=== PATIENT | male | born 1955 | race Caucasian/White ===

== ENCOUNTER → 2018-08-06 | Outpatient (CLI) | payer BC ==
[2018-08-06 11:16] LABS: Basophils % (A) 0 %; Eosinophils # (A) 0.2 k/uL (0-0.7); Eosinophils % (A) 3 %; HCT 48.9 % (39.0-53.0); HGB 16.3 gm/dL (13.0-17.5); Lymphocytes # (A) 1.2 k/uL (1.0-4.8); Lymphocytes % (A) 21 %; MCH 30.8 pg (25.0-35.0); MCHC 33.3 g/dL (31.0-37.0); MCV 92.3 fL (80.0-100.0); Monocytes # (A) 0.4 k/uL (0-1.0); Monocytes % (A) 6 %; Neutrophils % (A) 68 %; Platelet Count 149 k/uL (150-450); RBC 5.29 m/uL (4.30-5.90); RDW 13.5 % (11.5-15.5)
[2018-08-06 11:17] LABS: Appearance,Urine Clear (Clear); Bilirubin,Urine Negative (Negative); Blood,Urine Negative (Negative); Color,Urine Light Yellow; Glucose,Urine (UA) Negative (Negative); Ketones,Urine Negative (Negative); Leukocyte Esterase,Urine Negative (Negative); Nitrite,Urine Negative (Negative); PH, Urine 5.5 (5.0-8.0); Protein,Urine Negative (Negative); Specific Gravity,Urine 1.008 (1.001-1.035); Urobilinogen,Urine <2.0 mg/dL (<2.0)
[2018-08-06 11:31] LABS: INR 0.9 (<1.2); Partial Thromboplastin Time 23.9 sec (22.0-30.0); Prothrombin Time 9.6 sec (9.0-12.0)
[2018-08-06 11:35] LABS: Anion Gap 4 mmol/L; Blood Urea Nitrogen 16 mg/dL (9-20); Calcium 9.8 mg/dL (8.4-10.2); Carbon Dioxide 33 mmol/L (22-30); Chloride 103 mmol/L (98-107); Glucose 97 mg/dL (74-99); Potassium 5.8 mmol/L (3.5-5.1); Sodium 140 mmol/L (137-145)
--- NOTE | 2018-08-06 11:37 | XR ---
EXAMINATION TYPE: XR chest 2V DATE OF EXAM: 08/06/2018 COMPARISON: 03/18/2016 HISTORY: Preoperative examination TECHNIQUE: Frontal and lateral views of the chest are obtained. FINDINGS: There is no focal air space opacity, pleural effusion, or pneumothorax seen. The cardiac silhouette size is within normal limits. The osseous structures are intact. Mild multilevel degener ative changes seen of the thoracic spine. Cholecystectomy clips are noted. IMPRESSION: No acute cardiopulmonary process.
== END | disposition home or self-care (01) ==
LOC: LABPAT 10:03
PROVIDERS: ATTEND Orthopaedic Surgery Orthopaedic Surgery of the Spine
DX: Z01.818 Encounter for other preprocedural examination (principal); M50.21 Other cervical disc displacement, high cervical region; Z01.812 Encounter for preprocedural laboratory examination
CPT/HCPCS: 71046; 80048; 81003; 85025; 85610; 85730; 93005

== ENCOUNTER → 2018-08-08 | Outpatient (CLI) | payer BC ==
[2018-08-08 19:26] LABS: Anion Gap 4.2 mmol/L (4.00-12.00); Calcium 9.1 mg/dL (8.7-10.3); Carbon Dioxide 29.8 mmol/L (21.6-31.8); Potassium 4.5 mmol/L (3.5-5.5)
== END | disposition home or self-care (01) ==
LOC: LABWHC1 11:46
PROVIDERS: ATTEND Family Medicine
DX: E87.5 Hyperkalemia (principal)
CPT/HCPCS: 36415; 80048

== ENCOUNTER 2018-08-13 12:53 | Day surgery (SDC) | payer BC ==
[~2018-08-13 12:53] MED LIST: BACITRACIN 50,000 UNIT, POLYMYXIN B 500,000 UNIT in SODIUM CHLORIDE 0.9% IRRIGATIO 1,00... IRRIGATION ONE; HYDROmorphone 0.5 MG/0.5 ML SYRINGE IVP PRN; LACTATED RINGERS 1,000 ML IV SCH; LIDOCAINE 1% 20 ML VIAL (10MG/ML) FOR IV START INTRADERMA PRN; ONDANSETRON 4 MG/2 ML VIAL IVP ONE
[2018-08-13 13:07] VITALS: RESP 16
[2018-08-13] MEDS ORDERED: SCOPOLAMINE 1.5MG/72HR PATCH TRANSDERM ONE (13:15)
[2018-08-13] MEDS ORDERED: MIDAZOLAM 2 MG/2 ML VIAL ONE (13:38)
[2018-08-13] MEDS ORDERED: SUCCINYLCHOLINE CHLORIDE 100 MG/5 ML SYR IV ONE (13:38)
[2018-08-13] MEDS ORDERED: LIDOCAINE 1% INJ 10MG/ML (20 ML MDV) ONE (13:38)
[2018-08-13] MEDS ORDERED: fentaNYL (PF) 50 MCG/ML 2 ML AMP ONE (13:38)
[2018-08-13] MEDS ORDERED: PROPOFOL 10 MG/ML 20 ML VIAL IV ONE (13:38)
[2018-08-13] MEDS ORDERED: diphenhydrAMINE 50 MG/ML 1 ML VIAL ONE (13:38)
[2018-08-13] MEDS: ceFAZolin IN SWFI 2 GM/20 ML SYRINGE IVP ONE ×2 (13:41→14:23)
[2018-08-13] MEDS ORDERED: GELATIN SPONGE,ABSORB (LARGE) 1 EACH SPONGE MISCELLANE ONE (14:24)
[2018-08-13] MEDS ORDERED: BUPIVACAINE-EPI 0.5%-1:200,000 10 ML VIAL SQ ONE (14:24)
[2018-08-13] MEDS ORDERED: THROMBIN (BOVINE) 5,000 UNIT VIAL TOPICAL ONE (14:24)
--- NOTE | 2018-08-13 14:54 | XR ---
EXAMINATION TYPE: XR cervical spine 1V DATE OF EXAM: 08/13/2018 COMPARISON: NONE HISTORY: Neck pain. TECHNIQUE: Crosstable lateral view of cervical spine is obtained intraoperatively. FINDINGS: Exam is for surgical planning and upper diagnostic purposes. Metallic pointer for surgical planning is at anterior superior C7 level. IMPRESSION: As above.
[2018-08-13] MEDS ORDERED: BENZOCAINE/MENTHOL LOZENG 1 EACH LOZENGE MUCOUS MEM PRN (15:21)
[2018-08-13] MEDS ORDERED: HYDROmorphone 0.5 MG/0.5 ML SYRINGE IVP PRN (15:21)
[2018-08-13] MEDS ORDERED: HYDROcodone/APAP 5-325MG 1 EACH TAB PO PRN (15:21)
[2018-08-13] MEDS ORDERED: ONDANSETRON 4 MG/2 ML VIAL IVP PRN (15:21)
[2018-08-13] MEDS ORDERED: GABAPENTIN 300 MG CAP PO PRN (15:23)
[2018-08-13] MEDS ORDERED: ALPRAZolam 0.25 MG TAB PO PRN (15:23)
[2018-08-13] MEDS ORDERED: SODIUM CHLORIDE 0.9% 1,000 ML IV SCH (15:30)
[2018-08-13 15:31] VITALS: TEMP 97
--- NOTE | 2018-08-13 15:31 | P.OP ---
Date of Procedure: 08/13/18 Preoperative Diagnosis: Herniated nucleus pulposis C6 7, right upper extremity radiculopathy, right upper extremity weakness, degenerative disc disease Postoperative Diagnosis: Same Anesthesia: GETA Pathology: none sent Condition: stable Disposition: PACU Description of Procedure: BRIEF OPERATIVE NOTE Preoperative Diagnosis:Herniated nucleus pulposis C6 7, right upper extremity radiculopathy, right upper extremity weakness, degenerative disc disease Postoperative Diagnosis: Same Procedure: Anterior cervical decompression with discectomy and fusion C6 7 Placement of interbody graft C6 7 Application of anterior cervical plate C6 7 Surgeon: Dr. Mahoney Ribbon Winder: Je Jackson is present throughout the entire the case persistence during positioning, dissection, exposure, visualization, and all crucial elements of the case as well as closure. Anesthesia: General anesthesia per Dr. Gambino Estimated blood loss: Approximately 50 mL Complications: None apparent Components implanted: K2M [place] anterior cervical plate system with a 8 mm V Kos interbody allograft bone graft Disposition: To recovery room in good stable condition. OPERATIVE INDICATIONS The patient has had long-standing issues in their neck and upper extremities. He had acute worsening of his neck and upper extremity symptoms particular to the right and was having new weakness in his right upper extremity. He was found have significant degenerative changes throughout his cervical spine with a apparent new disc herniation on the right side at C6 7 which correlated well with his neck and upper extremity symptoms. The patient has been through conservative treatment. We discussed the possibility of dressing all the levels at his cervical spine versus the level that appeared to correlate most with his new neck and right upper extremity symptoms. We discussed various treatment options including surgery, and the patient wishes to proceed with surgery We discussed the risk, patient's alternatives and benefits of surgery including but not limited to, risk of bleeding risk of infection, risk of need for further surgery, risk of decreased, loss of motion, muscle function, malunion nonunion, hardware failure, nerve damage, paralysis, heart attack, and . OPERATIVE SUMMARY After discussing all the risks, patient alternatives and benefits at length, the patient elected to proceed with surgical intervention, signed informed consent, and presented for their procedure. The patient was seen and examined in the preoperative holding area and the surgical site was marked. The patient was given antibiotics and brought to the operating room. The patient was positioned on the operating room table in a supine position being careful to pad any bony prominences and pressure points. The patient was sedated and intubated by anesthesia in standard fashion. Once the airway and C- spine were stabilized the patient's arms were padded and tucked at her side, with her shoulders gently taped. The head was placed in a donut pad with the neck in good neutral alignment and position. We were careful to maintain the patient's cervical spine and good neutral alignment and position throughout. The patient was prepped and draped in a normal standard fashion. An appropriate timeout and keystone protocol performed. We were able to proceed with the surgery. The local wound area was infiltrated with local anesthetic. An incision was made transversely approximately 2-1/2 cm over the appropriate levels of C6 7. Dissection was taken down subcutaneously to the level of the platysma which was split in line with its fibers. Dissection was taken with a carotid approach, with the trachea and esophagus medial and the carotid sheath laterally. We dissected down to the anterior surface of the vertebral bodies of C6 7. Intraoperative x-ray was taken which showed a marker at the appropriate level at C6 7 disc space. With the appropriate level positively confirmed, we were able to proceed with discectomy at the appropriate levels of C6 7. All of the operative levels were exposed appropriately. The patient had all their tw itches back, and there was no evidence of recurrent laryngeal issue. The wound was copiously irrigated and suctioned dry as had been done periodically throughout the case. At the appropriate level of C6 7, I established an annulotomy with an 11 blade scalpel. A discectomy was performed with a combination of pituitary rongeurs, curettes, a high-speed bur, and Kerrison rongeurs. The posterior longitudinal ligament was taken down as were any posterior osteophytes. Note was made of a large disc extrusion and herniation to the right with correlate with the MRI and with his symptoms. I was able to remove the disc herniation and loose fragments. This gave good central and bilateral foraminal decompression. There is no evidence of any dural tear or leak. The endplates were prepared with a high-speed bur. With the endplates in good parallel position, I was able to size for the appropriate size interbody graft. The wound was irrigated and suctioned dry the graft was prepared and malleted into position. It had good alignment and position with the anterior surface flush with the anterior surface of the vertebral bodies. With the grafts intact, I was able to measure and contour and appropriate sized plate. The plate was positioned at the midline over the appropriate levels of C6 7. Screw holes were established with a hand drill and drill guide. Screws were placed in good alignment and position with excellent bony purchase. They were seated under the locking device. The construct was checked and found to be stable. Intraoperative x-ray was taken which showed good alignment and position of the implants at the appropriate levels. There was no evidence of any dural tear or leak. Good hemostasis was maintained. The wound was copiously irrigated and suctioned dry as had been done periodically throughout the case. The platysma was closed with absorbable suture. The subcutaneous tissue was closed. The subcuticular tissue was closed with absorbable suture. The wound was cleaned and dried and dressed appropriately. A soft cervical collar was placed appropriately. The patient was woken up by anesthesia, extubated, transferred back gently to their hospital bed and brought to the recovery room in good stable condition. The patient will be admitted to the hospital for appropriate postoperative care, medical management and monitoring. We will continue to follow them closely about the postoperative course.
--- NOTE | 2018-08-13 15:34 | XR ---
EXAMINATION TYPE: XR cervical spine 1V DATE OF EXAM: 08/13/2018 COMPARISON: Cervical spine x-ray earlier today. HISTORY: Neck pain, neck surgery today. TECHNIQUE: Crosstable lateral view of cervical spine is obtained intraoperatively. FINDINGS: Anterior fusion plate is partially imaged at C6-C7 level. There is mild to moderate narrowi ng and spurring at C4-C5 and C5-C6 levels. Overlying endotracheal tube is partially imaged. IMPRESSION: As above.
[2018-08-13] MEDS ORDERED: ceFAZolin IN SWFI 2 GM/20 ML SYRINGE IVP SCH (16:00)
[2018-08-13 16:48] VITALS: BP 131/83; PULSE 71
[2018-08-14] MEDS ORDERED: SENNOSIDES-DOCUSATE SODIUM 1 EACH TAB PO SCH (09:00)
[2018-08-14] MEDS ORDERED: FLUoxetine HCL 20 MG CAP PO SCH (09:00)
== END 2018-08-13 17:08 ==
LOC: UNDOADMIN 12:53 → OR 12:53 → 2ORMAIN 12:53 → EDSTATUS 14:30 → UNDODISIN 17:08 → OR 17:08
PROVIDERS: ATTEND Orthopaedic Surgery Orthopaedic Surgery of the Spine
DX: M50.123 Cervical disc disorder at C6-C7 level with radiculopathy (principal); M48.02 Spinal stenosis, cervical region; M50.223 Other cervical disc displacement at C6-C7 level; K21.9 Gastro-esophageal reflux disease without esophagitis; R05 Cough; R51 Headache; Z79.899 Other long term (current) drug therapy; Z91.013 Allergy to seafood; Z87.891 Personal history of nicotine dependence
CPT/HCPCS: 22551; 22853; 72020; C1713; C1762; J2250; J1200; J2405; J2001; J3010; J0330; J2704; J0690

== ENCOUNTER → 2018-11-05 | Outpatient (CLI) | payer BC ==
--- NOTE | 2018-11-05 10:40 | CT ---
EXAMINATION TYPE: CT sinus wo con DATE OF EXAM: 11/05/2018 COMPARISON: None HISTORY: Facial pressure and drainage. History of multiple sinus surgeries CT DLP: 654.4 mGycm. Automated Exposure Control for Dose Reduction was Utilized. TECHNIQUE: CT scan of the sinuses is performed without contrast, axial images are obtained, coronal r eformatted images are also reviewed. FINDINGS: There is mild to moderate mucosal thickening involving the visualized paranasal sinuses. Mo st marked findings are seen involving the ethmoid air cells. Postsurgical changes are seen in the ost ium of the maxillary sinus appears patent bilaterally. Visualized portion of mastoid air cells show no abnormal opacification. The globes are intact bilate rally. IMPRESSION: 1. Postsurgical changes with mild to moderate chronic appearing sinusitis. Ostium of the maxillary an trum appear to be patent bilaterally.
== END | disposition home or self-care (01) ==
LOC: RADCTMAIN 10:13
PROVIDERS: ATTEND Otolaryngology
DX: J32.9 Chronic sinusitis, unspecified (principal); Z98.890 Other specified postprocedural states
CPT/HCPCS: 70486

== ENCOUNTER → 2019-05-30 | Outpatient (CLI) | payer BC ==
--- NOTE | 2019-05-31 06:52 | US ---
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 MYH-associated polyposis. Rule out nodules. GLAND SIZE: Right Lobe: 4.5 x 2.0 x 1.7 cm Overall Parenchyma: Slightly heterogeneous. Left Lobe: 4.3 x 1.3 x 1.8 cm Overall Parenchyma: Slightly heterogeneous. Isthmus Thickness: 0.45 cm NODULES RIGHT: # of nodules measured on right: 0 LEFT: # of nodules measured on left: 1 1. 0.6 X 0.5 x 0.4 cm mixed nodule at the upper-mid pole with well-defined margins. This nodule is wider than tall and shows intranodular vascularity. No prior. ISTHMUS: # of nodules measured in the isthmus: 0 Images show fairly homogeneous normal-sized thyroid with 6 mm slightly hypoechoic central nodule gil ed by technologists and the left thyroid lobe. IMPRESSION: Normal-sized thyroid without greater than 1 cm nodule. Findings correlate with 2016 CT.
== END | disposition home or self-care (01) ==
LOC: RADUSMAIN 16:49
DX: D12.6 Benign neoplasm of colon, unspecified (principal)
CPT/HCPCS: 76536

== ENCOUNTER 2020-08-26 08:02 | Emergency (ER) | payer BC ==
[2020-08-26 08:08] VITALS: RESP 18; TEMP 97.9
[2020-08-26] MEDS ORDERED: SODIUM CHLORIDE 0.9% 500 ML 500 ML IV STA (08:21)
--- NOTE | 2020-08-26 08:44 | ED ---
General Adult HPI - General Chief complaint: Shortness of Breath Stated complaint: JOSE DE JESUS/Chest Pain Time Seen by Provider: 08/26/20 08:18 Source: patient, RN notes reviewed Mode of arrival: wheelchair Limitations: no limitations - History of Present Illness Initial comments: 64-year-old male presents for to the emergency Department chief complaint shortness of breath cough congestion. Patient states she's been sick since last Monday. Patient states is multiple coworkers out with Covid. Patient states she's felt chills no definite fever. Patient states he has no significant chest pain states is tight. Patient denies any vomiting states slight nausea and diarrhea. His generalized feels weak.. - Related Data Home Medications Medication Instructions Recorded Confirmed FLUoxetine HCL [PROzac] 20 mg PO QAM 08/07/18 08/26/20 Albuterol Sulfate [Proair Hfa] 2 puff INHALATION RT-Q4H PRN 08/26/20 08/26/20 Ergocalciferol (Vitamin D2) 1,250 mcg PO TH 08/26/20 08/26/20 [Vitamin D2 (50,000 Iu)] Previous Rx's Medication Instructions Recorded Dexamethasone 6 mg PO DAILY #5 tablet 08/26/20 Allergies Allergy/AdvReac Type Severity Reaction Status Date / Time shellfish derived [Shellfish] Allergy Rash/Hives Verified 08/26/20 08:55 Review of Systems ROS Statement: Those systems with pertinent positive or pertinent negative responses have been documented in the HPI. ROS Other: All systems not noted in ROS Statement are negative. Past Medical History Past Medical History: Chest Pain / Angina, GERD/Reflux Additional Past Medical History / Comment(s): "valve problem" per pt., recent admission for chest pain-was exposed & breathed in some chemicals @work & was due to that History of Any Multi-Drug Resistant Organisms: None Reported Past Surgical History: Appendectomy, Cholecystectomy, Heart Catheterization Additional Past Surgical History / Comment(s): complete colectomy-congenital, sinus surgery, heart catheterization without intervention in 2009, colon resection Past Anesthesia/Blood Transfusion Reactions: Motion Sickness, Postoperative Nausea & Vomiting (PONV) Past Psychological History: No Psychological Hx Reported Smoking Status: Never smoker Past Alcohol Use History: Occasional Past Drug Use History: None Reported - Past Family History Brother(s) Additional Family Medical History / Comment(s): COLON Sister(s) Family Medical History: Cancer Additional Family Medical History / Comment(s): 3 SISTERS COLON General Exam Limitations: no limitations General appearance: alert, in no apparent distress Head exam: Present: atraumatic, normocephalic, normal inspection Eye exam: Present: normal appearance, PERRL, EOMI. Absent: scleral icterus, conjunctival injection, periorbital swelling ENT exam: Present: normal exam, normal oropharynx, mucous membranes moist Neck exam: Present: normal inspection, full ROM. Absent: tenderness, meningismus, lymphadenopathy Respiratory exam: Present: normal lung sounds bilaterally. Absent: respiratory distress, wheezes, rales, rhonchi, stridor Cardiovascular Exam: Present: regular rate, normal rhythm, normal heart sounds. Absent: systolic murmur, diastolic murmur, rubs, gallop, clicks GI/Abdominal exam: Present: soft, normal bowel sounds. Absent: distended, tenderness, guarding, rebound, rigid Neurological exam: Present: alert, oriented X3, CN II-XII intact Skin exam: Present: warm, dry, intact, normal color. Absent: rash Course Vital Signs 08/26/20 08/26/20 08:04 09:39 Temperature 97.9 F Pulse Rate 95 76 Respiratory 18 18 Rate Blood Pressure 116/81 122/79 O2 Sat by Pulse 94 L 97 Oximetry Medical Decision Making - Medical Decision Making 64-year-old presented for shortness breath cough. Patient is covid Positive. Patient's x-ray is minimal pneumonia. Patient's labs otherwise unremarkable. Patient feels greatly improved patient satting around 99% on room. Patient discharged in stable condition. - Lab Data Result diagrams: 08/26/20 09:39 08/26/20 10:45 Lab Results 08/26/20 08/26/20 08/26/20 Range/Units 09:39 09:39 09:39 WBC 3.2 L (3.8-10.6) k/uL RBC 5.91 H (4.30-5.90) m/uL Hgb 18.1 H (13.0-17.5) gm/dL Hct 53.1 H (39.0-53.0) % MCV 90.0 (80.0-100.0) fL MCH 30.6 (25.0-35.0) pg MCHC 34.0 (31.0-37.0) g/dL RDW 13.2 (11.5-15.5) % Plt Count 120 L (150-450) k/uL MPV 8.5 Neutrophils % 64 % Lymphocytes % 24 % Monocytes % 10 % Eosinophils % 0 % Basophils % 1 % Neutrophils # 2.0 (1.3-7.7) k/uL Lymphocytes # 0.8 L (1.0-4.8) k/uL Monocytes # 0.3 (0-1.0) k/uL Eosinophils # 0.0 (0-0.7) k/uL Basophils # 0.0 (0-0.2) k/uL PT 10.4 (9.0-12.0) sec INR 1.0 (<1.2) APTT 24.8 (22.0-30.0) sec D-Dimer 0.44 (<0.60) mg/L FEU Sodium 133 L (137-145) mmol/L Potassium 6.0 H (3.5-5.1) mmol/L Chloride 103 (98-107) mmol/L Carbon Dioxide 21 L (22-30) mmol/L Anion Gap 9 mmol/L BUN 25 H (9-20) mg/dL Creatinine 0.94 (0.66-1.25) mg/dL Est GFR (CKD-EPI)AfAm >90 (>60 ml/min/1.73 sqM) Est GFR (CKD-EPI)NonAf 87 (>60 ml/min/1.73 sqM) Glucose 99 (74-99) mg/dL Plasma Lactic Acid Osvaldo (0.7-2.0) mmol/L Calcium 8.8 (8.4-10.2) mg/dL Magnesium 2.1 (1.6-2.3) mg/dL Total Bilirubin 1.1 (0.2-1.3) mg/dL AST 53 (17-59) U/L ALT 37 (4-49) U/L Alkaline Phosphatase 45 (38-126) U/L Troponin I (0.000-0.034) ng/mL NT-Pro-B Natriuret Pep pg/mL Total Protein 7.7 (6.3-8.2) g/dL Albumin 4.2 (3.5-5.0) g/dL Coronavirus (PCR) (Not Detectd) 03/24/21 03/24/21 03/24/21 Range/Units 09:39 09:39 09:39 WBC (3.8-10.6) k/uL RBC (4.30-5.90) m/uL Hgb (13.0-17.5) gm/dL Hct (39.0-53.0) % MCV (80.0-100.0) fL MCH (25.0-35.0) pg MCHC (31.0-37.0) g/dL RDW (11.5-15.5) % Plt Count (150-450) k/uL MPV Neutrophils % % Lymphocytes % % Monocytes % % Eosinophils % % Basophils % % Neutrophils # (1.3-7.7) k/uL Lymphocytes # (1.0-4.8) k/uL Monocytes # (0-1.0) k/uL Eosinophils # (0-0.7) k/uL Basophils # (0-0.2) k/uL PT (9.0-12.0) sec INR (<1.2) APTT (22.0-30.0) sec D-Dimer (<0.60) mg/L FEU Sodium (137-145) mmol/L Potassium (3.5-5.1) mmol/L Chloride (98-107) mmol/L Carbon Dioxide (22-30) mmol/L Anion Gap mmol/L BUN (9-20) mg/dL Creatinine (0.66-1.25) mg/dL Est GFR (CKD-EPI)AfAm (>60 ml/min/1.73 sqM) Est GFR (CKD-EPI)NonAf (>60 ml/min/1.73 sqM) Glucose (74-99) mg/dL Plasma Lactic Acid Osvaldo 0.9 (0.7-2.0) mmol/L Calcium (8.4-10.2) mg/dL Magnesium (1.6-2.3) mg/dL Total Bilirubin (0.2-1.3) mg/dL AST (17-59) U/L ALT (4-49) U/L Alkaline Phosphatase (38-126) U/L Troponin I <0.012 (0.000-0.034) ng/mL NT-Pro-B Natriuret Pep 19 pg/mL Total Protein (6.3-8.2) g/dL Albumin (3.5-5.0) g/dL Coronavirus (PCR) (Not Detectd) 08/26/20 08/26/20 Range/Units 09:39 10:45 WBC (3.8-10.6) k/uL RBC (4.30-5.90) m/uL Hgb (13.0-17.5) gm/dL Hct (39.0-53.0) % MCV (80.0-100.0) fL MCH (25.0-35.0) pg MCHC (31.0-37.0) g/dL RDW (11.5-15.5) % Plt Count (150-450) k/uL MPV Neutrophils % % Lymphocytes % % Monocytes % % Eosinophils % % Basophils % % Neutrophils # (1.3-7.7) k/uL Lymphocytes # (1.0-4.8) k/uL Monocytes # (0-1.0) k/uL Eosinophils # (0-0.7) k/uL Basophils # (0-0.2) k/uL PT (9.0-12.0) sec INR (<1.2) APTT (22.0-30.0) sec D-Dimer (<0.60) mg/L FEU Sodium (137-145) mmol/L Potassium 5.0 (3.5-5.1) mmol/L Chloride (98-107) mmol/L Carbon Dioxide (22-30) mmol/L Anion Gap mmol/L BUN (9-20) mg/dL Creatinine (0.66-1.25) mg/dL Est GFR (CKD-EPI)AfAm (>60 ml/min/1.73 sqM) Est GFR (CKD-EPI)NonAf (>60 ml/min/1.73 sqM) Glucose (74-99) mg/dL Plasma Lactic Acid Osvaldo (0.7-2.0) mmol/L Calcium (8.4-10.2) mg/dL Magnesium (1.6-2.3) mg/dL Total Bilirubin (0.2-1.3) mg/dL AST (17-59) U/L ALT (4-49) U/L Alkaline Phosphatase (38-126) U/L Troponin I (0.000-0.034) ng/mL NT-Pro-B Natriuret Pep pg/mL Total Protein (6.3-8.2) g/dL Albumin (3.5-5.0) g/dL Coronavirus (PCR) Detected A (Not Detectd) Disposition Clinical Impression: COVID-19 Disposition: HOME SELF-CARE Condition: Stable Instructions (If sedation given, give patient instructions): Coronavirus Disease 2019 (COVID-19) Additional Instructions: Please return to the Emergency Department if symptoms worsen or any other concerns. Prescriptions: Dexamethasone 6 mg PO DAILY #5 tablet Is patient prescribed a controlled substance at d/c from ED?: No Referrals: Darleen Lemus MD [Primary Care Provider] - 1-2 days Time of Disposition: 11:20
--- NOTE | 2020-08-26 09:35 | XR ---
EXAMINATION TYPE: XR chest 2V DATE OF EXAM: 08/26/2020 COMPARISON: 08/06/2018 HISTORY: Shortness of breath TECHNIQUE: Frontal and lateral views of the chest are obtained. FINDINGS: Scattered senescent parenchymal changes noted. Hyperinflation compatible with COPD. Left infrahilar infiltrate noted felt to reflect nonspecific pneumonia. Heart size is stable. Mediastinal structures are stable and grossly unremarkable. No evidence for hilar prominence. Degenerative changes dorsal spine. IMPRESSION: 1. Left infrahilar infiltrate noted felt to reflect nonspecific pneumonia.
[2020-08-26 09:41] VITALS: BP 122/79; PULSE 76
[2020-08-26 10:10] LABS: Basophils % (A) 1 %; Eosinophils % (A) 0 %; HCT 53.1 % (39.0-53.0); HGB 18.1 gm/dL (13.0-17.5); Lymphocytes # (A) 0.8 k/uL (1.0-4.8); Lymphocytes % (A) 24 %; MCH 30.6 pg (25.0-35.0); Mean Platelet Volume 8.5; Monocytes # (A) 0.3 k/uL (0-1.0); Monocytes % (A) 10 %; Neutrophils % (A) 64 %; Platelet Count 120 k/uL (150-450); RBC 5.91 m/uL (4.30-5.90); RDW 13.2 % (11.5-15.5); WBC 3.2 k/uL (3.8-10.6)
[2020-08-26 10:19] LABS: D-Dimer 0.44 mg/L FEU (<0.60); Partial Thromboplastin Time 24.8 sec (22.0-30.0); Prothrombin Time 10.4 sec (9.0-12.0)
[2020-08-26 10:22] LABS: ALT 37 U/L (4-49); AST 53 U/L (17-59); African American GFR (CKD) >90 (>60 ml/min/1.73 sqM); Albumin 4.2 g/dL (3.5-5.0); Alkaline Phosphatase 45 U/L (38-126); Anion Gap 9 mmol/L; Blood Urea Nitrogen 25 mg/dL (9-20); Calcium 8.8 mg/dL (8.4-10.2); Carbon Dioxide 21 mmol/L (22-30); Chloride 103 mmol/L (98-107); Glucose 99 mg/dL (74-99); Magnesium 2.1 mg/dL (1.6-2.3); Non-African American GFR(CKD) 87 (>60 ml/min/1.73 sqM); Sodium 133 mmol/L (137-145); Total Bilirubin 1.1 mg/dL (0.2-1.3); Total Protein 7.7 g/dL (6.3-8.2)
== END 2020-08-26 11:27 | disposition home or self-care (01) ==
LOC: EC 08:02
DX: U07.1 COVID-19 (principal); J12.82 Pneumonia due to coronavirus disease 2019; Z79.899 Other long term (current) drug therapy; Z91.013 Allergy to seafood
CPT/HCPCS: 36415; 71046; 80053; 83605; 83735; 83880; 84132; 84484; 85025; 85379; 85610; 85730; 87635; 93005; 99285

== ENCOUNTER → 2021-06-10 | Outpatient (CLI) | payer BC ==
--- NOTE | 2021-06-11 09:03 | ECHOF ---
Referral Reason:R06.09 MEASUREMENTS -------- HEIGHT: 180.3 cm WEIGHT: 102.1 kg BP: RVIDd: 3.0 cm (< 3.3) IVSd: 1.0 cm (0.6 - 1.1) LVIDd: 4.7 cm (3.9 - 5.3) LVPWd: 0.9 cm (0.6 - 1.1) IVSs: 1.8 cm LVIDs: 2.3 cm LVPWs: 1.6 cm LAESV Index (A-L): 18.49 ml/m Ao Diam: 3.5 cm (2.0 - 3.7) AV Cusp: 2.1 cm (1.5 - 2.6) LA Diam: 2.8 cm (2.7 - 3.8) MV EXCURSION: 18.048 mm (> 18.000) MV EF SLOPE: 135 mm/s (70 - 150) EPSS: 0.7 cm MV E Hero: 0.73 m/s MV DecT: 171 ms MV A Hero: 0.61 m/s MV E/A Ratio: 1.20 RAP: 5.00 mmHg RVSP: 12.99 mmHg FINDINGS -------- This was a technically good study. The left ventricular size is normal. Left ventricular wall thickness is normal. Overall left vent ricular systolic function is normal with, an EF between 55 - 60 %. The diastolic filling pattern is normal for the age of the patient 10.37. The right ventricle is normal in size. The left atrial size is normal. Normal LA size by volume 22+/-6 ml/m2. The right atrial size is normal. The aortic valve is trileaflet and appears structurally normal. The mitral valve is normal. There is trace mitral regurgitation. The tricuspid valve appears structurally normal. Trace tricuspid regurgitation present. Right edvin tricular systolic pressure is normal at < 35 mmHg. There is no pulmonic regurgitation present. The aortic root size is normal. Normal inferior vena cava with normal inspiratory collapse consistent with estimated right atrial pre ssure of 5 mmHg. There is no pericardial effusion. CONCLUSIONS -------- 1. The left ventricular size is normal. 2. Left ventricular wall thickness is normal. 3. Overall left ventricular systolic function is normal with, an EF between 55 - 60 %. 4. The diastolic filling pattern is normal for the age of the patient 10.37 5. There is trace mitral regurgitation. 6. Trace tricuspid regurgitation present. 7. There is no pericardial effusion. ENVIRONMENTAL MONITORING TECHNICIAN: Joan Osborne RDCS
== END | disposition home or self-care (01) ==
LOC: RADECHMAIN 14:27
PROVIDERS: ATTEND Family Medicine
DX: I08.1 Rheumatic disorders of both mitral and tricuspid valves (principal)
CPT/HCPCS: 93306

== ENCOUNTER → 2021-06-10 | Outpatient (CLI) | payer BC ==
[2021-06-11 06:42] LABS: Gliadin AB IgA, Deaminated NEGATIVE (NEGATIVE); Gliadin AB IgA, Unit <0.2 U/mL; Gliadin AB IgG, Deaminated NEGATIVE (NEGATIVE)
== END | disposition home or self-care (01) ==
LOC: LABWHC1 15:05
DX: R19.7 Diarrhea, unspecified (principal)
CPT/HCPCS: 36415; 83516

== ENCOUNTER → 2023-08-08 | Outpatient (CLI) | payer BC ==
--- NOTE | 2023-08-09 12:24 | MR ---
EXAMINATION TYPE: MR brain wo/w con DATE OF EXAM: 08/08/2023 8:54 PM CLINICAL INDICATION:Male, 67 years old with history of R519 HEADACHE, UNSPECIFIED; PHH, Headaches COMPARISON: None TECHNIQUE: Multi planar, multi sequence imaging was performed through the brain including: T1, T2, In version recovery, susceptibility weighted imaging and gradient echo imaging and Diffusion weighted im aging. The patient was then given intravenous contrast and multi planar, T1 fat-saturation images wer e obtained. IV Contrast: 10 cc Gadavist FINDINGS: The dumas-white junctions, ventricular system, basal cisterns appear unremarkable. Diffusion-weighted imaging shows no evidence of restricted diffusion to suggest acute/subacute infarct. Intracranial ar terial flow voids are maintained. Midline structures show no abnormality. Scattered foci of high T2 s ignal intensity are seen within the periventricular white matter. The susceptibility weighted images do not reveal any evidence for micro-hemorrhage. After administration of gadolinium, no abnormal enha ncement is seen. Left frontal lobe developmental venous anomaly series 501 image 345. The bone marrow signal is within normal limits. Paranasal sinuses and mastoid air cells: Mild paranasal sinus disease most proximal right maxillary s inus. Visualized orbits: Orbital contents are intact. IMPRESSION: 1. No evidence of intracranial mass, acute/subacute infarct, or abnormal enhancement.e 2. Nonspecific white matter changes, likely related to small vessel ischemic disease. 3. Left frontal lobe developmental venous anomaly.
== END | disposition home or self-care (01) ==
LOC: RADMRIMAIN 20:45
PROVIDERS: ATTEND Family Medicine
DX: R51.9 Headache, unspecified (principal); G31.89 Other specified degenerative diseases of nervous system
CPT/HCPCS: 70553; A9585

== ENCOUNTER 2024-02-17 11:16 | Observation (INO) | payer MEDICARE, BC ==
[2024-02-17] MEDS: ASPIRIN 81 MG PO STA (11:38)
[2024-02-17] MEDS: NITROGLYCERIN SL TABS 0.4 MG TAB SUBLINGUAL STA (11:40)
[2024-02-17] MEDS: SODIUM CHLORIDE 0.9% 1,000 ML IV STA (11:41)
[2024-02-17 12:04] LABS: Basophils % (A) 1 %; Eosinophils # (A) 0.1 k/uL (0-0.7); Eosinophils % (A) 2 %; HCT 47.9 % (39.0-53.0); Lymphocytes # (A) 1.4 k/uL (1.0-4.8); Lymphocytes % (A) 31 %; MCH 30.5 pg (25.0-35.0); MCHC 33.3 g/dL (31.0-37.0); MCV 91.5 fL (80.0-100.0); Mean Platelet Volume 8.7; Monocytes # (A) 0.3 k/uL (0-1.0); Monocytes % (A) 6 %; Neutrophils # (A) 2.6 k/uL (1.3-7.7); Neutrophils % (A) 57 %; Platelet Count 175 k/uL (150-450); RBC 5.24 m/uL (4.30-5.90); RDW 13.5 % (11.5-15.5); WBC 4.6 k/uL (3.8-10.6)
--- NOTE | 2024-02-17 12:10 | XR ---
EXAMINATION TYPE: XR chest 2V DATE OF EXAM: 02/17/2024 11:56 AM CLINICAL INDICATION: Male, 68 years old with history of Chest Pain; COMPARISON: Chest radiographs from 08/26/2020 TECHNIQUE: XR chest 2V Frontal view of the chest. FINDINGS: Lungs/Pleura: There is no evidence of pleural effusion, focal consolidation, or pneumothorax. Pulmonary vascularity: Unremarkable. Heart/mediastinum: Cardiomediastinal silhouette is unremarkable. Musculoskeletal: No acute osseous pathology. There is fixation hardware in the lower cervical spine. Other findings: None IMPRESSION: No acute cardiopulmonary disease/process. [facility], Workstation [id number], 02/17/2024 12:08 PM
[2024-02-17 12:15] LABS: Prothrombin Time 10.6 sec (10.0-12.5)
[2024-02-17 12:32] LABS: ALT 29 U/L (4-49); AST 30 U/L (17-59); African American GFR (CKD) >90 (>60 ml/min/1.73 sqM); Albumin 4.5 g/dL (3.5-5.0); Alkaline Phosphatase 54 U/L (38-126); Anion Gap 9 mmol/L; Blood Urea Nitrogen 22 mg/dL (9-20); Calcium 9.4 mg/dL (8.4-10.2); Carbon Dioxide 23 mmol/L (22-30); Chloride 104 mmol/L (98-107); Glucose 112 mg/dL (74-99); Magnesium 1.9 mg/dL (1.6-2.3); Non-African American GFR(CKD) >90 (>60 ml/min/1.73 sqM); Potassium 4.5 mmol/L (3.5-5.1); Sodium 136 mmol/L (137-145); Total Bilirubin 1.1 mg/dL (0.2-1.3); Total Protein 7.5 g/dL (6.3-8.2)
[2024-02-17 12:40] LABS: NT-Pro-B-Type Natriuretic Pept 42 pg/mL
[2024-02-17] MEDS: NITROGLYCERIN OINT 1 INCH/GM PACKET TOPICAL SCH (12:45)
[2024-02-17] MEDS ORDERED: NALOXONE 0.4 MG/ML 1 ML VIAL IV PRN (13:00)
[2024-02-17] MEDS: SODIUM CHLORIDE 0.9% 1,000 ML IV SCH (13:11)
--- NOTE | 2024-02-17 13:11 | ED ---
General Adult HPI - General Chief complaint: Chest Pain Stated complaint: Chest pain Time Seen by Provider: 02/17/24 11:25 Source: patient, RN notes reviewed, old records reviewed Mode of arrival: ambulatory Limitations: no limitations - History of Present Illness Initial comments: Patient is a 68-year-old male presents emergency department complaining of substernal chest pain. States it occasionally radiated to the left shoulder earlier today. Endorsed an episode of nausea and vomiting this morning as well and was diaphoretic during this episode. That resolved. Currently states the pain is approximately a 3 out of 10 and describes it as an ache. Denies shortness of breath, nausea, vomiting, abdominal pain. No history of cardiac stents. Presents for further evaluation at this time. Does not follow-up with a tunnel man. Symptoms have been ongoing for over 24 hours. - Related Data Home Medications Medication Instructions Recorded Confirmed FLUoxetine HCL [PROzac] 20 mg PO DAILY 08/07/18 02/17/24 Aspirin EC [Ecotrin Low Dose] 81 mg PO DAILY 02/17/24 02/17/24 Omeprazole 20 mg PO DAILY 02/17/24 02/17/24 Allergies Allergy/AdvReac Type Severity Reaction Status Date / Time shellfish derived [Shellfish] Allergy Rash/Hives Verified 02/17/24 11:52 Review of Systems ROS Statement: Those systems with pertinent positive or pertinent negative responses have been documented in the HPI. Review of Systems: CONST: Denies fever EYES: Denies blurry vision ENT: Denies nasal congestion C/V: Endorses chest pain RESP: Denies shortness of breath GI: Denies abdominal pain : Denies dysuria SKIN: Denies rash. MSK: Denies joint pain. NEURO: Denies headache ROS Other: All systems not noted in ROS Statement are negative. Past Medical History Past Medical History: Chest Pain / Angina, GERD/Reflux Additional Past Medical History / Comment(s): "valve problem" per pt., recent admission for chest pain-was exposed & breathed in some chemicals @work & was due to that History of Any Multi-Drug Resistant Organisms: None Reported Past Surgical History: Appendectomy, Cholecystectomy, Heart Catheterization Additional Past Surgical History / Comment(s): complete colectomy-congenital, sinus surgery, heart catheterization without intervention in 2009, colon resection Past Anesthesia/Blood Transfusion Reactions: Motion Sickness, Postoperative Nausea & Vomiting (PONV) Past Psychological History: No Psychological Hx Reported Smoking Status: Never smoker Past Alcohol Use History: Occasional Past Drug Use History: None Reported - Past Family History Brother(s) Additional Family Medical History / Comment(s): COLON Sister(s) Family Medical History: Cancer Additional Family Medical History / Comment(s): 3 SISTERS COLON General Exam - General Exam Comments Initial Comments: General: Appears in no acute distress. HEAD: Normal with no signs of head trauma. EYES: PERRLA, EOMI, conjunctiva normal, no discharge. ENT: Hearing grossly intact, normal oropharynx. RESPIRATORY: Clear breath sounds bilaterally. No wheezes, rales, or rhonchi. C/V: Regular rate and rhythm. S1 and S2 auscultated, no edema, peripheral pulses 2+ and intact throughout ABD: Abd is soft, nontender, nondistended EXT: Normal range of motion, no obvious deformity SKIN: No rashes or lesions observed on exposed skin. NEURO: Alert and oriented x 4. Limitations: no limitations Course Vital Signs 02/17/24 02/17/24 02/17/24 11:17 11:30 12:00 Temperature 97.7 F Pulse Rate 79 68 65 Respiratory 20 20 19 Rate Blood Pressure 155/78 143/88 143/88 O2 Sat by Pulse 97 97 94 L Oximetry 02/17/24 12:44 Temperature Pulse Rate 70 Respiratory 18 Rate Blood Pressure 122/78 O2 Sat by Pulse 95 Oximetry Medical Decision Making - Medical Decision Making Was pt. sent in by a medical professional or institution (, PA, COMBUSTION ANALYST, urgent care, hospital, or senior living...) When possible be specific @ -No Did you speak to anyone other than the patient for history (EMS, parent, family, police, friend...)? What history was obtained from this source @ -No Did you review nursing and triage notes (agree or disagree)? Why? @ -I reviewed and agree with nursing and triage notes Were old charts reviewed (outside hosp., previous admission, EMS record, old EKG, old radiological studies, urgent care reports/EKG's, senior living records)? Report findings @ -Old EKG reviewed from August 2020 with no significant change seen on today's EKG. Differential Diagnosis (chest pain, altered mental status, abdominal pain women, abdominal pain men, vaginal bleeding, weakness, fever, dyspnea, syncope, headache, dizziness, GI bleed, back pain, seizure, CVA, palpatations, mental health, musculoskeletal)? @ -Differential Chest Pain: Stable Angina, Unstable Angina, STEMI, NSTEMI Aortic Dissection, Pneumothorax, Musculoskeletal, Esophageal Spasm GERD, Cholecystitis, Pancreatitis, Zoster, this is not meant to be an all-inclusive list. EKG interpreted by me (3pts min.). @ -As above X-rays interpreted by me (1pt min.). @ -Chest x-ray reveals no obvious acute cardiopulmonary process. CT interpreted by me (1pt min.). @ -None done U/S interpreted by me (1pt. min.). @ -None done What testing was considered but not performed or refused? (CT, X-rays, U/S, labs)? Why? @ -None What meds were considered but not given or refused? Why? @ -None Did you discuss the management of the patient with other professionals (professionals i.e. , PA, COMBUSTION ANALYST, lab, RT, psych nurse, social media community manager, brick and block mason, teacher, custodial officer, case management associate)? Give summary @ -Spoke with the admitting physician, Dr. Richardson of [facility] who accepted the admission. Was smoking cessation discussed for >3mins.? @ -No Was critical care preformed (if so, how long)? @ -No Were there social determinants of health that impacted care today? How? (Homelessness, low income, unemployed, alcoholism, drug addiction, transportation, low edu. Level, literacy, decrease access to med. care, usp, rehab)? @ -No Was there de-escalation of care discussed even if they declined (Discuss DNR or withdrawal of care, Hospice)? DNR status @ -No What co-morbidities impacted this encounter? (DM, HTN, Smoking, COPD, CAD, Cancer, CVA, ARF, Chemo, Hep., AIDS, mental health diagnosis, sleep apnea, morbid obesity)? @ -None Was patient admitted / discharged? Hospital course, mention meds given and route, prescriptions, significant lab abnormalities, going to OR and other pertinent info. @ -Based on the patient's presentation and physical exam, presents emergency department for chest pain. Patient was given 324 mg of aspirin as well as a nitroglycerin tablet. We will obtain cardiac workup. He was in agreement this plan. Vital signs currently within acceptable limits. EKG shows a chronic minimal ST segment abnormality in V2 with no acute changes dating back to August 2020. No other acute findings on EKG. No signs of acute ischemia. Chest x-ray unremarkable. Labs are unremarkable including undetectable troponin. At this time patient's pain is resolved following the nitroglycerin tablet. Nitropaste will be applied. We will admit the patient for troponin trending, cardiac evaluation, as well as an echo. Cardiology consulted. I spoke with Dr. Richardson who accepted the admission. Undiagnosed new problem with uncertain prognosis? @ -No Drug Therapy requiring intensive monitoring for toxicity (Heparin, Nitro, Insulin, Cardizem)? @ -No Were any procedures done? @ -No Diagnosis/symptom? @ -Chest pain Acute, or Chronic, or Acute on Chronic? @ -Acute Uncomplicated (without systemic symptoms) or Complicated (systemic symptoms)? @ -Complicated Side effects of treatment? @ -No Exacerbation, Progression, or Severe Exacerbation? @ -No Poses a threat to life or bodily function? How? (Chest pain, [place], [place], pneumonia, PE, COPD, DKA, ARF, appy, cholecystitis, CVA, Diverticulitis, Homicidal, Suicidal, threat to staff... and all critical care pts) @ -Potentially, yes - Lab Data Result diagrams: 02/17/24 11:37 02/17/24 11:37 Lab Results 02/17/24 02/17/24 02/17/24 Range/Units 11:37 11:37 11:37 WBC 4.6 (3.8-10.6) k/uL RBC 5.24 (4.30-5.90) m/uL Hgb 16.0 (13.0-17.5) gm/dL Hct 47.9 (39.0-53.0) % MCV 91.5 (80.0-100.0) fL MCH 30.5 (25.0-35.0) pg MCHC 33.3 (31.0-37.0) g/dL RDW 13.5 (11.5-15.5) % Plt Count 175 (150-450) k/uL MPV 8.7 Neutrophils % 57 % Lymphocytes % 31 % Monocytes % 6 % Eosinophils % 2 % Basophils % 1 % Neutrophils # 2.6 (1.3-7.7) k/uL Lymphocytes # 1.4 (1.0-4.8) k/uL Monocytes # 0.3 (0-1.0) k/uL Eosinophils # 0.1 (0-0.7) k/uL Basophils # 0.0 (0-0.2) k/uL PT 10.6 (10.0-12.5) sec INR 1.0 (<1.2) APTT 24.0 (22.0-30.0) sec Sodium 136 L (137-145) mmol/L Potassium 4.5 (3.5-5.1) mmol/L Chloride 104 (98-107) mmol/L Carbon Dioxide 23 (22-30) mmol/L Anion Gap 9 mmol/L BUN 22 H (9-20) mg/dL Creatinine 0.82 (0.66-1.25) mg/dL Est GFR (CKD-EPI)AfAm >90 (>60 ml/min/1.73 sqM) Est GFR (CKD-EPI)NonAf >90 (>60 ml/min/1.73 sqM) Glucose 112 H (74-99) mg/dL Calcium 9.4 (8.4-10.2) mg/dL Magnesium 1.9 (1.6-2.3) mg/dL Total Bilirubin 1.1 (0.2-1.3) mg/dL AST 30 (17-59) U/L ALT 29 (4-49) U/L Alkaline Phosphatase 54 (38-126) U/L Troponin I (0.000-0.034) ng/mL NT-Pro-B Natriuret Pep 42 pg/mL Total Protein 7.5 (6.3-8.2) g/dL Albumin 4.5 (3.5-5.0) g/dL 02/17/24 Range/Units 11:37 WBC (3.8-10.6) k/uL RBC (4.30-5.90) m/uL Hgb (13.0-17.5) gm/dL Hct (39.0-53.0) % MCV (80.0-100.0) fL MCH (25.0-35.0) pg MCHC (31.0-37.0) g/dL RDW (11.5-15.5) % Plt Count (150-450) k/uL MPV Neutrophils % % Lymphocytes % % Monocytes % % Eosinophils % % Basophils % % Neutrophils # (1.3-7.7) k/uL Lymphocytes # (1.0-4.8) k/uL Monocytes # (0-1.0) k/uL Eosinophils # (0-0.7) k/uL Basophils # (0-0.2) k/uL PT (10.0-12.5) sec INR (<1.2) APTT (22.0-30.0) sec Sodium (137-145) mmol/L Potassium (3.5-5.1) mmol/L Chloride (98-107) mmol/L Carbon Dioxide (22-30) mmol/L Anion Gap mmol/L BUN (9-20) mg/dL Creatinine (0.66-1.25) mg/dL Est GFR (CKD-EPI)AfAm (>60 ml/min/1.73 sqM) Est GFR (CKD-EPI)NonAf (>60 ml/min/1.73 sqM) Glucose (74-99) mg/dL Calcium (8.4-10.2) mg/dL Magnesium (1.6-2.3) mg/dL Total Bilirubin (0.2-1.3) mg/dL AST (17-59) U/L ALT (4-49) U/L Alkaline Phosphatase (38-126) U/L Troponin I <0.012 (0.000-0.034) ng/mL NT-Pro-B Natriuret Pep pg/mL Total Protein (6.3-8.2) g/dL Albumin (3.5-5.0) g/dL - EKG Data -: EKG Interpreted by Me EKG Comments: 12-lead Electrocardiogram Interpretation Note EKG was reviewed and interpreted by myself. 12-lead ECG performed at 1120 is interpreted by me as revealing normal sinus rhythm at a rate of 66 beats per minute. [place] is normal. MA interval is 165 ms, QRS duration is 105 ms, QTc is [address] segment slight elevation seen in V2 which dates back to prior EKGs from August 2020. There were no acute ST or T wave abnormalities to suggest myocardial ischemia or injury. R wave progression across the precordium was delayed. By my interpretation this EKG is non- diagnostic for acute ischemia. Disposition Clinical Impression: Chest pain Disposition: ADMITTED IP TO THIS HOSP Condition: Stable Referrals: Darleen Lemus MD [Primary Care Provider] - 1-2 days Time of Disposition: 13:00
--- NOTE | 2024-02-17 15:56 | P.HPIM ---
History of Present Illness H&P Date: 02/17/24 History of present illness: 68-year-old male patient with past medical history significant for GERD, hyperlipidemia who presented to ER with a complaint of substernal chest pain. Patient stated that he started to have intermittent chest pain yesterday, which was sharp initially, later on became dull and achy, was intermittent, lasting few minutes, worse with exertion and relieved by rest, also relieved with sublingual nitroglycerin in the ED, had associated nausea vomiting and diaphoresis. Patient also reported unable to catch breath at the time of chest pain. Patient denied any nausea vomiting abdominal pain dysuria urgency frequency. Patient denied any cardiac history. Patient reported family history of heart disease in father and mother and old age, also reported history of diabetes in brother. Patient denied any fever, chills, sore throat, productive cough, headache, vision changes, Weakness or numbness of extremities. In the ED patient's vital stable, on room air. EKG negative for acute changes. Troponin negative X2. CBC and BMP unremarkable. REVIEW OF SYSTEMS: CONSTITUTIONAL: No fever, no malaise, no fatigue. HEENT: No recent visual problems or hearing problems. Denied any sore throat. CARDIOVASCULAR: No chest pain, orthopnea, PND, no palpitations, no syncope. PULMONARY: No shortness of breath, no cough, no hemoptysis. GASTROINTESTINAL: No diarrhea, no nausea, no vomiting, no abdominal pain. NEUROLOGICAL: No headaches, no weakness, no numbness. HEMATOLOGICAL: Denies any bleeding or petechiae. GENITOURINARY: Denies any burning micturition, frequency, or urgency. MUSCULOSKELETAL/RHEUMATOLOGICAL: Denies any joint pain, swelling, or any muscle pain. ENDOCRINE: Denies any polyuria or polydipsia. The rest of the 14-point review of systems is negative. PHYSICAL EXAMINATION: GENERAL: The patient is A&O x3, NAD HEENT: EOMI, Sclerae anicteric, Moist Mucous membranes Neck: Supple, Non tender, No JVD PULMONARY: Equal breath souds B/L, No wheezing, No crackles. CARDIOVASCULAR: S1, S2 present. No murmurs, rubs, or gallops. ABDOMEN: Soft, nontender, nondistended, normoactive bowel sounds. No guarding or rebound tenderness. MUSCULOSKELETAL: No edema, No cyanosis. No clubbing. Normal ROM. Intact peripheral pulses. EXTREMITIES: No cyanosis, clubbing, or pedal edema. NEUROLOGICAL: CN 2-12 grossly intact. No FND Assessment and plan: Chest pain: Presented with chest pain, worse with exertion, relieved by rest and sublingual nitroglycerin Family history of heart disease, no personal cardiac history Initial troponin negative X2. Normal NT proBNP Labs unremarkable Monitor with serial EKG and troponin Echocardiogram Cardiology consult Monitor vital signs and labs Continue telemetry monitoring Labs and medication were reviewed. Continue same treatment. Resume home medication. Further recommendations as per clinical course of the patient Dictation was produced using [employer] dictation software. please excuse any grammatical, word or spelling errors. Past Medical History Past Medical History: Chest Pain / Angina, GERD/Reflux Additional Past Medical History / Comment(s): "valve problem" per pt., recent admission for chest pain-was exposed & breathed in some chemicals @work & was due to that History of Any Multi-Drug Resistant Organisms: None Reported Past Surgical History: Appendectomy, Cholecystectomy, Heart Catheterization Additional Past Surgical History / Comment(s): complete colectomy-congenital, sinus surgery, heart catheterization without intervention in 2009, colon resection Past Anesthesia/Blood Transfusion Reactions: Motion Sickness, Postoperative Nausea & Vomiting (PONV) Past Psychological History: No Psychological Hx Reported Smoking Status: Never smoker Past Alcohol Use History: Occasional Past Drug Use History: None Reported - Past Family History Brother(s) Additional Family Medical History / Comment(s): COLON Sister(s) Family Medical History: Cancer Additional Family Medical History / Comment(s): 3 SISTERS COLON Medications and Allergies Home Medications Medication Instructions Recorded Confirmed Type FLUoxetine HCL [PROzac] 20 mg PO DAILY 08/07/18 02/17/24 History Aspirin EC [Ecotrin Low Dose] 81 mg PO DAILY 02/17/24 02/17/24 History Omeprazole 20 mg PO DAILY 02/17/24 02/17/24 History Allergies Allergy/AdvReac Type Severity Reaction Status Date / Time shellfish derived [Shellfish] Allergy Rash/Hives Verified 02/17/24 11:52 Physical Exam Vitals: Vital Signs Temp Pulse Resp BP Pulse Ox 02/17/24 15:14 58 L 16 123/71 95 02/17/24 15:11 60 16 123/71 95 02/17/24 13:53 58 L 16 119/73 99 02/17/24 12:44 70 18 122/78 95 02/17/24 12:00 65 19 143/88 94 L 02/17/24 11:30 68 20 143/88 97 02/17/24 11:17 97.7 F 79 20 155/78 97 Intake and Output 02/17/24 02/17/24 02/17/24 06:59 14:59 22:59 Other: Weight 106.594 kg Results CBC & Chem 7: 02/17/24 11:37 02/17/24 11:37 Labs: Abnormal Lab Results - Last 24 Hours (Table) 02/17/24 Range/Units 11:37 Sodium 136 L (137-145) mmol/L BUN 22 H (9-20) mg/dL Glucose 112 H (74-99) mg/dL
[2024-02-17] MEDS: HEPARIN SODIUM,PORCINE 5,000 UNIT/ML 1 ML VIAL SQ SCH (18:05)
[2024-02-17] MEDS: ACETAMINOPHEN TAB 325 MG TAB PO PRN (22:15)
[2024-02-18] MEDS: PANTOPRAZOLE 40 MG TABLET PO SCH (06:44)
[2024-02-18] MEDS: ONDANSETRON 4 MG/2 ML VIAL IVP PRN (08:51)
[2024-02-18] MEDS: ASPIRIN 81 MG PO SCH (08:55)
[2024-02-18] MEDS: FLUoxetine HCL 20 MG CAP PO SCH (08:55)
[2024-02-18 09:31] LABS: Basophils # (A) 0.02 X 10*3/uL (0.00-0.10); Basophils % (A) 0.4 %; Eosinophils # (A) 0.16 X 10*3/uL (0.04-0.35); Eosinophils % (A) 2.8 %; HCT 45.1 % (37.2-50.0); HGB 15.1 g/dL (12.0-17.0); Lymphocytes # (A) 1.96 X 10*3/uL (0.90-5.00); Lymphocytes % (A) 34.7 %; MCH 30.9 pg (27.0-32.0); MCHC 33.5 g/dL (32.0-37.0); MCV 92.4 FL (80.0-97.0); Mean Platelet Volume 11.1 FL (9.5-12.2); Monocytes # (A) 0.49 X 10*3/uL (0.20-1.00); Monocytes % (A) 8.7 %; NRBC Per 100 WBC 0 X 10*3/uL (0.00-0.01); Neutrophils # (A) 3.01 X 10*3/uL (1.80-7.70); Neutrophils % (A) 53.2 %; Platelet Count 157 X 10*3/uL (140-440); RBC 4.88 X 10*6/uL (4.10-5.60); RDW 13.4 % (11.5-14.5); WBC 5.65 X 10*3/uL (4.50-10.00)
[2024-02-18 10:17] LABS: ALT 24 U/L (8-49); AST 20 U/L (13-35); Albumin 3.9 g/dL (3.8-4.9); Albumin/Globulin Ratio 1.77 Ratio (1.60-3.17); Alkaline Phosphatase 58 U/L (41-126); BUN/Creat Ratio 18.67 Ratio (12.00-20.00); Blood Urea Nitrogen 16.8 mg/dL (9.0-27.0); Carbon Dioxide 25.7 mmol/L (21.6-31.8); Chloride 106 mmol/L (96-109); Chol/HDL Ratio 5.89 Ratio; Globulin 2.2 g/dL (1.6-3.3); Glucose 101 mg/dL (70-110); LDL Cholesterol,Calculated 125.9 mg/dL (0.0-131.0); Potassium 4.9 mmol/L (3.5-5.5); Sodium 140 mmol/L (135-145); Total Bilirubin 0.7 mg/dL (0.3-1.2); Total Protein 6.1 g/dL (6.2-8.2)
--- NOTE | 2024-02-18 11:13 | P.CRDCN ---
History of Present Illness Consult date: 02/18/24 History of present illness: The patient is a pleasant 68-year-old gentleman with a past medical history significant for overweight and history of colon disease status post colectomy but no other cardiovascular issues including any coronary artery disease or diabetes or hypertension or dyslipidemia. He presented to the hospital complaining of chest discomfort. He was in his usual state of health till about few months ago when he started experiencing shortness of breath with exertion but lately has been experiencing discomfort in the chest in the middle of the chest as a burning sensation/dull feeling with radiation to the left arm. No radiation to the neck or back or shoulder. No sweating and no dizziness or lightheadedness and no feeling of heart racing or fluttering and no presyncope or syncope. He underwent further evaluation including chest x-ray came in to be unremarkable and EKG showed sinus mechanism with no significant ST or T wave abnormalities. The rest of the blood work came in to be unremarkable.. The physical examination is remarkable for regular rhythm with a soft systolic murmur and clear breathing sounds bilaterally and no edema was noted. Assessment Atypical chest discomfort Shortness of breath with exertion Overweight Colon disease Plan Acute coronary event was ruled out. The patient did have normal cardiac enzymes Further cardiac testing including stress test and echocardiogram Follow-up with the patient Past Medical History Past Medical History: Chest Pain / Angina, GERD/Reflux Additional Past Medical History / Comment(s): "valve problem" per pt., recent admission for chest pain-was exposed & breathed in some chemicals @work & was due to that History of Any Multi-Drug Resistant Organisms: None Reported Past Surgical History: Appendectomy, Cholecystectomy, Heart Catheterization Additional Past Surgical History / Comment(s): complete colectomy-congenital, sinus surgery, heart catheterization without intervention in 2009, colon resection Past Anesthesia/Blood Transfusion Reactions: Motion Sickness, Postoperative Nausea & Vomiting (PONV) Past Psychological History: No Psychological Hx Reported Smoking Status: Never smoker Past Alcohol Use History: Occasional Additional Past Alcohol Use History / Comment(s): QUIT SMOKING 1999, 22 SMOKED FOR YRS, 1 PPD. Past Drug Use History: None Reported - Past Family History Brother(s) Additional Family Medical History / Comment(s): COLON Sister(s) Family Medical History: Cancer Additional Family Medical History / Comment(s): 3 SISTERS COLON Medications and Allergies Home Medications Medication Instructions Recorded Confirmed Type FLUoxetine HCL [PROzac] 20 mg PO DAILY 08/07/18 02/17/24 History Aspirin EC [Ecotrin Low Dose] 81 mg PO DAILY 02/17/24 02/17/24 History Omeprazole 20 mg PO DAILY 02/17/24 02/17/24 History Allergies Allergy/AdvReac Type Severity Reaction Status Date / Time shellfish derived [Shellfish] Allergy Rash/Hives Verified 02/17/24 11:52 Physical Exam Vitals: Vital Signs Temp Pulse Pulse Resp BP BP Pulse Ox 02/18/24 07:00 97.7 F 60 16 116/72 97 02/18/24 02:15 97.8 F 60 18 101/59 96 02/17/24 21:15 64 02/17/24 18:50 98.1 F 64 15 110/67 96 02/17/24 16:21 97.9 F 58 L 16 130/78 95 02/17/24 15:14 58 L 16 123/71 95 02/17/24 15:11 60 16 123/71 95 02/17/24 13:53 58 L 16 119/73 99 02/17/24 12:44 70 18 122/78 95 02/17/24 12:00 65 19 143/88 94 L 02/17/24 11:30 68 20 143/88 97 02/17/24 11:17 97.7 F 79 20 155/78 97 Intake and Output 02/17/24 02/18/24 02/18/24 22:59 06:59 14:59 Intake Total 0 Balance 0 Intake: Oral 0 Other: Voiding Method Toilet # Voids 1 2 Weight 106.594 kg Results 02/18/24 03:26 02/18/24 03:26 Cardiac Enzymes 02/17/24 02/17/24 02/17/24 Range/Units 11:37 11:37 14:26 AST 30 (17-59) U/L Troponin I <0.012 <0.012 (0.000-0.034) ng/mL 02/17/24 02/18/24 Range/Units 20:15 03:26 AST 20 (17-59) U/L Troponin I <0.012 (0.000-0.034) ng/mL Coagulation 02/17/24 Range/Units 11:37 PT 10.6 (10.0-12.5) sec APTT 24.0 (22.0-30.0) sec Lipids 02/18/24 Range/Units 03:26 Triglycerides 155.00 H (0.00-149.00) mg/dL Cholesterol 189.00 (0.00-200.00) mg/dL HDL Cholesterol 32.10 L (40.00-60.00) mg/dL Cholesterol/HDL Ratio 5.89 Ratio CBC 02/17/24 02/18/24 Range/Units 11:37 03:26 WBC 4.6 5.65 (3.8-10.6) k/uL RBC 5.24 4.88 (4.30-5.90) m/uL Hgb 16.0 15.1 (13.0-17.5) gm/dL Hct 47.9 45.1 (39.0-53.0) % Plt Count 175 157 (150-450) k/uL Comprehensive Metabolic Panel 02/17/24 02/18/24 Range/Units 11:37 03:26 Sodium 136 L 140 (137-145) mmol/L Potassium 4.5 4.9 (3.5-5.1) mmol/L Chloride 104 106 (98-107) mmol/L Carbon Dioxide 23 25.7 (22-30) mmol/L BUN 22 H 16.8 (9-20) mg/dL Creatinine 0.82 0.9 (0.66-1.25) mg/dL Glucose 112 H 101 (74-99) mg/dL Calcium 9.4 9.0 (8.4-10.2) mg/dL AST 30 20 (17-59) U/L ALT 29 24 (4-49) U/L Alkaline Phosphatase 54 58 (38-126) U/L Total Protein 7.5 6.1 L (6.3-8.2) g/dL Albumin 4.5 3.9 (3.5-5.0) g/dL Current Medications Generic Name Dose Route Start Last Admin Trade Name Freq PRN Reason Stop Dose Admin Acetaminophen 650 mg 02/17/24 21:56 02/17/24 22:15 Acetaminophen Tab 325 Mg Tab PO 650 mg Q6HR PRN Administration Fever and/ or Pain Aspirin 81 mg 02/18/24 09:00 02/18/24 08:55 Aspirin 81 Mg PO 81 mg DAILY ARNULFO Administration Fluoxetine HCl 20 mg 09/15/24 09:00 02/18/24 08:55 Fluoxetine Hcl 20 Mg Cap PO 20 mg DAILY ARNULFO Administration Heparin Sodium (Porcine) 5,000 unit 02/17/24 16:00 02/18/24 08:55 Heparin Sodium,Porcine 5,000 Unit/Ml 1 Ml Vial SQ 5,000 unit Q8HR ARNULFO Administration Sodium Chloride 1,000 mls @ 75 mls/hr 02/17/24 13:00 02/18/24 06:44 Saline 0.9% IV 75 mls/hr .[id number] ARNULFO Administration Naloxone HCl 0.2 mg 02/17/24 13:00 Naloxone 0.4 Mg/Ml 1 Ml Vial IV Q2M PRN Opioid Reversal Nitroglycerin 0.5 inch 02/17/24 12:05 02/18/24 08:55 Nitroglycerin Oint 1 Inch/Gm Packet TOPICAL Not Given Q8HR ARNULFO Ondansetron HCl 4 mg 02/17/24 13:00 02/18/24 08:51 Ondansetron 4 Mg/2 Ml Vial IVP 4 mg Q8HR PRN Administration Nausea And Vomiting Pantoprazole Sodium 40 mg 02/18/24 07:30 02/18/24 06:44 Pantoprazole 40 Mg Tablet PO 40 mg [id number] ARNULFO Administration Intake and Output 02/17/24 02/18/24 02/18/24 22:59 06:59 14:59 Intake Total 0 Balance 0 Intake: Oral 0 Other: Voiding Method Toilet # Voids 1 2 Weight 106.594 kg 02/18/24 03:26 02/18/24 03:26
--- NOTE | 2024-02-18 15:06 | P.PN ---
Subjective Progress Note Date: 02/18/24 Interval History: 68-year-old male patient with past medical history significant for GERD, hyperlipidemia who presented to ER with a complaint of substernal chest pain. Patient stated that he started to have intermittent chest pain yesterday, which was sharp initially, later on became dull and achy, was intermittent, lasting few minutes, worse with exertion and relieved by rest, also relieved with subli ngual nitroglycerin in the ED, had associated nausea vomiting and diaphoresis. Patient also reported unable to catch breath at the time of chest pain. Patient denied any nausea vomiting abdominal pain dysuria urgency frequency. Patient denied any cardiac history. Patient reported family history of heart disease in father and mother and old age, also reported history of diabetes in brother. Matthias tran denied any fever, chills, sore throat, productive cough, headache, vision changes, Weakness or numbness of extremities. In the ED patient's vital stable, on room air. EKG negative for acute changes. Troponin negative X2. CBC and BMP unremarkable. 02/18/2024--patient was seen and examined today. at bedside. Chest pain has resolved. Troponin remain negative. Echocardiogram pending. Cardiology following, plan for stress test and echocardiogram. Chest pain: Presented with chest pain, worse with exertion, relieved by rest and sublingual nitroglycerin Family history of heart disease, no personal cardiac history Troponin remain negative. Normal NT proBNP Labs unremarkable Echocardiogrampending Cardiology consulted--- recommended stress test and echocardiogram. Monitor vital signs and labs Continue telemetry monitoring Labs and medication were reviewed. Continue same treatment. Resume home medication. Further recommendations as per clinical course of the patient DVT prophylaxis PHYSICAL EXAMINATION: GENERAL: The patient is A&O x3, NAD HEENT: EOMI, Sclerae anicteric, Moist Mucous membranes Neck: Supple, Non tender, No JVD PULMONARY: Equal breath souds B/L, No wheezing, No crackles. CARDIOVASCULAR: S1, S2 present. No murmurs, rubs, or gallops. ABDOMEN: Soft, nontender, nondistended, normoactive bowel sounds. No guarding or rebound tenderness. MUSCULOSKELETAL: No edema, No cyanosis. No clubbing. Normal ROM. Intact peripheral pulses. EXTREMITIES: No cyanosis, clubbing, or pedal edema. NEUROLOGICAL: CN 2-12 grossly intact. No FND Skin: No Rash REVIEW OF SYSTEMS: CONSTITUTIONAL: No fever or chills. CARDIOVASCULAR: No chest pain, palpitations or syncope. PULMONARY: No shortness of breath, no cough, sore throat. GASTROINTESTINAL: No nausea, vomiting, diarrhea, abdominal pain. : No Dysuria, urgency, frequency. Extremities: No edema. NEUROLOGICAL: No headaches, no weakness, or numbness Dictation was produced using [employer] dictation software. please excuse any grammatical, word or spelling errors. Objective - Vital Signs Vital signs: Vital Signs Temp 98.7 F 02/18/24 14:23 Pulse 65 02/18/24 14:23 Resp 16 02/18/24 14:23 BP 123/76 02/18/24 14:23 Pulse Ox 96 02/18/24 14:23 FiO2 Intake & Output 02/17/24 02/18/24 02/18/24 18:59 06:59 18:59 Intake Total 0 Output Total 40 Balance -40 0 Weight 106.594 kg Intake: Oral 0 Output: Drainage 40 Abdomen 40 Other: Voiding Method Toilet Toilet # Voids 2 - Labs CBC & Chem 7: 02/18/24 03:26 02/18/24 03:26 Labs: Abnormal Lab Results - Last 24 Hours (Table) 02/18/24 02/18/24 Range/Units 03:26 03:26 Hemoglobin A1c 6.3 H (<=6.0) % Total Protein 6.1 L (6.2-8.2) g/dL Triglycerides 155.00 H (0.00-149.00) mg/dL HDL Cholesterol 32.10 L (40.00-60.00) mg/dL
[2024-02-19 07:46] VITALS: RESP 17
--- NOTE | 2024-02-19 14:03 | CA ---
Stress Echo Report Michael Gerber Age: 68 Gender: M : 1955 Exam Date: 02/19/2024 09:40 Exam Location: [facility] Stress Ht (in): 71 Wt (lb): 235 Ordering Physician: Garo Vance MD ([id number]) Referring Physician: JONATHAN,, [employer]: JANINA Technologist Procedure CPT: Indication: Chest Pain ICD-9 Codes: Rhythm: Patient History: Cardiac Medications: SEE CHART Medications in past 24 hours: Contrast: N/A Stress Results Protocol: Luis E Total dose(mL): NA Exercise Duration (min:sec): 8:[address] Depression (mm): Angina Score: Simpson Score: METS: 9.5 Resting HR: 78 Resting BP: 130 / 88 Peak HR: 140 Peak BP: 190 / 66 Max Predicted HR: 154 91 % Max Predicted HR Target HR: 131 Double Product: 13658 Stress Summary: BP Response: Reason for Termination: Reached target heart rate or work-load Cardiac Symptoms: NO SYMPTOMS ECG Analysis Resting ECG: Stress ECG: Arrhythmia: Echo Analysis Resting Echo: Peak Echo Analysis: MEASUREMENTS (Male/Female) Normal Values CONCLUSIONS Diagnosis Patient admitted for recurrent chest discomfort despite medical treatment Stress echo reveals normal heart rate and blood pressure response Average exercise capacity of 8 minutes No echocardiographic evidence for ischemia No ECG evidence for ischemia Baseline PVCs suppressed with exercise Normal exercise stress echo Dr. Primitivo Holden MD (Electronically Signed) Final Date: 19 February 2024 14:02
--- NOTE | 2024-02-19 14:24 | CA ---
Transthoracic Echo Report Name: Michael Gerber Age: 68 Gender: M : 1955 Exam Date: 02/19/2024 09:56 Exam Location: [place] Echo Ht (in): 71 Wt (lb): 235 Ordering Physician: Garo Vance MD ([id number]) Attending/Referring Phys: [employer] Loss Prevention Manager Nicole Nixon RDCS Procedure CPT: Indications: Chest Pain Cardiac Hx: Technical Quality: Good Contrast 1: Total Dose (mL): Contrast 2: Total Dose (mL): MEASUREMENTS (Male / Female) Normal Values 2D ECHO RV Internal Dim ED PLAX 3.6 cm LV Diastolic Volume MOD BP 92.8 cm??? 67 - 155 / 56 - 104 cm??? LV Systolic Volume MOD BP 41.4 cm??? 22 - 58 / 19 - 49 cm??? LV Ejection Fraction MOD BP 55.3 % >= 55 % LV Cardiac Index MOD BP 1555.5 cm???/min???m??? LV Diastolic Volume MOD 4C 89.9 cm??? LV Systolic Volume MOD 4C 43.3 cm??? LV Ejection Fraction MOD 4C 51.9 % LV Cardiac Index MOD 4C 1413.2 cm???/min???m??? LV Diastolic Length 4C 8.8 cm LV Systolic Length 4C 7.4 cm LV Diastolic Volume MOD 2C 98.0 cm??? LV Systolic Volume MOD 2C 45.7 cm??? LV Ejection Fraction MOD 2C 53.4 % LV Cardiac Index MOD 2C 1585.6 cm???/min???m??? LV Diastolic Length 2C 8.1 cm LV Systolic Length 2C 7.2 cm LA Volume 54.9 cm??? 18 - 58 / 22 - 52 cm??? LA Volume Index 23.4 cm???/m??? 16 - 28 cm???/m??? DOPPLER AV Peak Velocity 118.9 cm/s AV Peak Gradient 5.7 mmHg MV Area PHT 3.0 cm??? Mitral E Point Velocity 72.5 cm/s Mitral A Point Velocity 76.9 cm/s Mitral E to A Ratio 0.9 MV Deceleration Time 254.1 ms TR Peak Velocity 236.2 cm/s TR Peak Gradient 22.3 mmHg Right Ventricular Systolic Press 27.3 mmHg FINDINGS Left Ventricle Left ventricular ejection fraction is estimated at 55-60 %. Left ventricular cavity size normal. Left ventricular wall thickness normal. Normal left ventricular wall motion. Right Ventricle Normal right ventricular size and function. Right ventricular systolic pressure within normal limits. Right Atrium Normal right atrial size. No right atrial thrombus or mass seen. Left Atrium Normal left atrial size. No left atrial thrombus or mass present. Mitral Valve Structurally normal mitral valve. No mitral stenosis, regurgitation or prolapse. Aortic Valve Trileaflet aortic valve. No aortic valve stenosis or regurgitation. Tricuspid Valve Structurally normal tricuspid valve. Trace to mild tricuspid regurgitation. Pulmonic Valve Structurally normal pulmonic valve. No pulmonic regurgitation. Pericardium No pericardial effusion. No pleural effusion. Aorta Normal size aortic root and proximal ascending aorta. CONCLUSIONS Diagnosis: Recurrent chest discomfort despite medical treatment 2D echo shows preserved LV size and systolic function Possible mild pericarditis/prominent pericardium posteriorly Previewed by: Dr. Primitivo Holden MD (Electronically Signed) Final Date: 19 February 2024 14:23
[2024-02-19 15:51] VITALS: BP 125/77; PULSE 62; TEMP 98.2
--- NOTE | 2024-02-20 02:34 | DS ---
DISCHARGE SUMMARY FINAL DIAGNOSES: 1. Chest pain, possibly mild pericarditis, negative stress echo. 2. Troponin negative. 3. History of gastroesophageal reflux disease. DISCHARGE DISPOSITION: The patient will be discharged in a stable condition. HISTORY OF PRESENT ILLNESS: This 68-year-old gentleman with a past medical history of multiple medical problems, was admitted with chest pain. The stress echo was normal. Possibility of mild pericarditis was noted by Cardiology. The patient improved significantly. Keen on going home. I recommend to close followup with Cardiology in the outpatient setting. PHYSICAL EXAMINATION: VITAL SIGNS: Stable. CARDIOVASCULAR: S1, S2. ABDOMEN: Soft. NERVOUS SYSTEM: No focal deficits. The patient will be discharged with the recommendation to continue with aspirin, omeprazole, and fluoxetine. MMODL / IJN: [id number] /
== END 2024-02-19 15:00 | disposition home or self-care (01) ==
LOC: EC 11:16 → 6NMEDSUR 13:01
PROVIDERS: ADMIT Internal Medicine; ATTEND Internal Medicine
DX: R07.2 Precordial pain (principal); R06.02 Shortness of breath; K21.9 Gastro-esophageal reflux disease without esophagitis; E78.5 Hyperlipidemia, unspecified; E66.3 Overweight; Z68.32 Body mass index [BMI] 32.0-32.9, adult; Z90.49 Acquired absence of other specified parts of digestive tract; Z79.82 Long term (current) use of aspirin; Z79.899 Other long term (current) drug therapy; Z82.49 Family history of ischemic heart disease and other diseases of the circulatory system; Z87.19 Personal history of other diseases of the digestive system
CPT/HCPCS: 36415; 71046; 80053; 80061; 83036; 83735; 83880; 84484; 85025; 85610; 85730; 93005; 93306; 93351; 94760; 96372; 96374; 99285

== ENCOUNTER → 2024-04-16 | Outpatient (CLI) | payer MEDICARE, BC | LOC: CPPFTMAIN 12:42 | PROVIDERS: ATTEND Internal Medicine Clinical Cardiac Electrophysiology | DX: R06.02 Shortness of breath (principal); Z91.013 Allergy to seafood; Z87.891 Personal history of nicotine dependence | CPT/HCPCS: 94060; 94726; 94729 ==